=== PATIENT | male | born 1950 | race American Indian/Alaskan Native ===

== ENCOUNTER 2019-08-05 10:20 | Outpatient (CLI) | payer MEDICARE ==
[2019-08-05 11:07] LABS: Blood Urea Nitrogen 12 mg/dL (9-20)
--- NOTE | 2019-08-05 12:08 | Cat Scan Report ---
CT CHEST WITH CONTRAST INDICATION / CLINICAL INFORMATION: PAROXYSMAL ATRIAL FIBRILLATION,HYPERTENSION. TECHNIQUE: Axial CT images were obtained through the chest after 100 cc Omnipaque 300 IV contrast. Sagittal and coronal reformatted images. All CT scans at this location are performed using CT dose reduction for A SHAHID by means of automated exposure control. COMPARISON: None available. FINDINGS: HEART: Heart size is within normal limits. Moderate coronary artery calcifications are identified. No pericardial abnormality. THORACIC AORTA: No significant abnormality. MEDIASTINUM and TYE: No significant abnormality. LUNGS: No acute air space or interstitial disease. Mild centrilobular and paraseptal emphysematous c hanges are noted in the upper lung zones. No mass or infiltrate. PLEURA: No significant pleural effusion. No pneumothorax. SKELETAL SYSTEM: Mild thoracic spondylosis. No fracture or suspicious bony lesion. UPPER ABDOMEN: No significant abnormality. ADDITIONAL FINDINGS: None. IMPRESSION: No acute cardiopulmonary process. Moderate coronary artery calcifications. Mild emphysematous changes. Signer Name: Ori Nicole Jr, MD Signed: 08/05/2019 12:04 PM Workstation Name: [id number]
== END 2019-08-05 10:21 | disposition home or self-care (01) ==
LOC: CT 10:20
PROVIDERS: ATTEND Internal Medicine Cardiovascular Disease
DX: I25.10 Atherosclerotic heart disease of native coronary artery without angina pectoris (principal); J43.8 Other emphysema; I10 Essential (primary) hypertension; I48.0 Paroxysmal atrial fibrillation; R94.31 Abnormal electrocardiogram [ECG] [EKG]
CPT/HCPCS: 36415; 71260; 82565; 84520; Q9967